=== PATIENT | male | born 1990 | race Caucasian/White ===

== ENCOUNTER 2022-01-16 14:46 | Emergency (ER) | payer MEDICAID ==
[~2022-01-16] VITALS: Ht 167.6 cm; Wt 77.0 kg
[2022-01-16 14:57] VITALS: BP 148/92
[2022-01-16] MEDS ORDERED: BACITRACIN ZINC OINT UDPKT TOP ONE (15:30)
[2022-01-16] MEDS ORDERED: LIDOCAINE HCL/PF 1% 10 MG/ML 5ML VIAL INFIL ONE (15:30)
[2022-01-16] MEDS ORDERED: CEPH500C2 MT (19:02)
== END 2022-01-16 19:14 | disposition home or self-care (01) ==
LOC: ER 14:46
DX: S61.213A Laceration without foreign body of left middle finger without damage to nail, initial encounter (principal); S61.218A Laceration without foreign body of other finger without damage to nail, initial encounter; W45.8XXA Other foreign body or object entering through skin, initial encounter; Y93.89 Activity, other specified; Y92.89 Other specified places as the place of occurrence of the external cause; Y99.8 Other external cause status
CPT/HCPCS: 12002; 99283; J3490; Z7610